=== PATIENT | male | born 1960 | race Caucasian/White ===

== ENCOUNTER → 2023-07-14 14:36 | Outpatient (BNVA) | payer OTHER, SELFPAY | PROVIDERS: PCP Family Medicine; Referring Provider Family Medicine; Visit Provider Orthopaedic Surgery | DX: M43.17 Spondylolisthesis, lumbosacral region (principal); M43.16 Spondylolisthesis, lumbar region; M41.50 Other secondary scoliosis, site unspecified; M48.062 Spinal stenosis, lumbar region with neurogenic claudication | CPT/HCPCS: 72110; 99204 ==

== ENCOUNTER 2023-08-12 14:39 | Outpatient (CLI) | payer OTHER, SELFPAY ==
--- NOTE | 2023-08-12 15:00 | MR_ITS ---
WS: [id number] MRI LUMBAR SPINE NONCONTRAST TECHNIQUE: Sagittal T1, T2 and STIR imaging. Axial T1 and T2 imaging. CLINICAL INFORMATION: Lumbar pain COMPARISON: None. FINDINGS: Mild lumbar curve. No acute compression. Chronic spondylolysis L5-S1 with anterolisthesis measuring 1 0 mm. Advanced disc space narrowing at this level. Slight retrolisthesis L2 on L3 L3 on L4 and L4 on L5. L1-L2: Normal. L2-L3: Mild annular bulging. Mild narrowing of the subarticular recess bilaterally. Mild facet arthro yolanda. Foramen are patent. L3-L4: Slight retrolisthesis. Mild disc bulging with mild central canal stenosis. Impingement irwin ing LEFT L4 nerve root. Moderate facet arthropathy. LEFT foraminal protrusion with moderate LEFT fora deisi narrowing. RIGHT foramen is patent. L4-L5: Slight retrolisthesis with mild disc bulging and advanced facet arthropathy. This results in s evere central canal stenosis with redundancy of the cauda equina nerve rootlets. Moderate bilateral f oraminal narrowing. L5-S1: Chronic spondylolysis and anterolisthesis. Severe bilateral foraminal narrowing impinges the e xiting L5 nerve roots bilaterally. Foramen is patent. Moderate facet arthropathy. Visualized pelvic bony structures: Normal. Paravertebral soft tissues: Normal. IMPRESSION: 1. Chronic spondylolysis L5-S1 with anterolisthesis measuring 10 mm. 2. Moderate to severe central canal stenosis L4-5 with redundancy of the cauda equina nerve rootlets . 3. Moderate bilateral L4-5 and severe bilateral L5-S1 foraminal narrowing. 4. Mild central canal stenosis L3-4 with impingement LEFT subarticular recess.
== END 2023-08-12 14:40 | disposition home or self-care (01) ==
LOC: RAD 14:39
PROVIDERS: PCP Family Medicine; Visit Provider Orthopaedic Surgery
DX: M47.817 Spondylosis without myelopathy or radiculopathy, lumbosacral region (principal); M48.07 Spinal stenosis, lumbosacral region; M54.9 Dorsalgia, unspecified
CPT/HCPCS: 72148

== ENCOUNTER 2023-10-12 12:07 | Inpatient (IN) | payer OTHER, SELFPAY ==
[2023-10-12] VITALS (61 sets, daily range): BP systolic 110–186; BP diastolic 72–106; PULSE 58–112; RESP 15–22; TEMP 36.3–36.7; O2SAT 96–100; BMI 29.2; BMI 22.2
--- NOTE | 2023-10-12 12:12 | XR_ITS ---
WS: [id number] Exam: XR chest 1V portable [id number] Date/Time of Exam: 10/12/2023 12:12 PM Reason For Exam: dyspnea/cough Comparison 02/01/2018. Findings: The lungs are clear and fully expanded. Costophrenic angles are sharp. No infiltrates. Bronchovascula r relief appears normal. Cardiac silhouette is unremarkable. Bony elements are intact. IMPRESSION: Unremarkable chest radiograph.
--- NOTE | 2023-10-12 12:12 | CTR_ITS ---
PROCEDURE INFORMATION: Exam: CT Head Without Contrast Exam date and time: 10/12/2023 3:06 PM Age: 62 years old Clinical indication: Altered mental status/memory loss; Confusion or disorientation; Additional info: Ams/new onset seizure TECHNIQUE: Imaging protocol: Computed tomography of the head without contrast. Radiation optimization: All CT scans at this facility use at least one of these dose optimization techniques: automated exposure control; mA and/or kV adjustment per patient size (includes targeted exams where dose is matched to clinical indication); or iterative reconstruction. REPORTING DATA: Count of CT and Cardiac NM exams in prior 12 months: This patient has received 0 known CTs and 0 known cardiac nuclear medicine studies in the 12 months prior to the current study. COMPARISON: MR head wo/w con [id number] 03/03/2018 12:15 PM RADIATION DOSE METRICS: Total DLP (mGy-cm): 927.44 FINDINGS: Brain: Normal. No hemorrhage. Unremarkable white matter. No mass effect. Cerebral ventricles: No ventriculomegaly. Paranasal sinuses: Mucosal thickening in the maxillary, ethmoid, and frontal sinuses. Mastoid air cells: Visualized mastoid air cells are well aerated. Bones/joints: Unremarkable. No acute fracture. Soft tissues: Unremarkable. CT/CT head wo con* [id number] IMPRESSION: No acute intracranial abnormality.
--- NOTE | 2023-10-12 12:12 | ECG_ITS ---
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 Measurements Intervals [place] Rate: 91 P: 65 WI: 184 QRS: 63 QRSD: 112 T: 64 QT: 352 QTc: 433 Interpretive Statements SINUS RHYTHM WITH OCCASIONAL VENTRICULAR PREMATURE COMPLEXES MODERATE INTRAVENTRICULAR CONDUCTION DELAY [110+ ms QRS DURATION] Compared to ECG 02/01/2018 20:39:20 Ventricular premature complex(es) now present Intraventricular conduction delay now present Electronically Signed On 10-12-2023 21:47:55 ELECTRIC BLANKET WIRER by Femi Villar M.D. [id number]
[2023-10-12 12:18] LABS: ABG PCO2 42.4 mmHg (35-45); ABG PH Result 7.43 (7.35-7.45); Alveolar-Arterial Oxygen Gradi 4.9 mmHg (5-10); Arterial Blood Gas Hematocrit 46.4 % (42-52); Base Excess ABG 3.1 mmol/L (-2.0-2.0); Blood Gas Allen Test Pos; Blood Gas Operator Identificat MONRO; Blood Gas Sample Site Radial, left; Blood Gas Sample Type Arterial; Carboxyhemoglobin 4.2 %THgb (0.4-20.1); HCO3 ABG 27.9 mmol/L (22-26); HGB O2 Sat 94.9 % (95-100); Ionized Calcium Level - ABG 1.2 mmol/L (1.1-1.4); Methemoglobin 0.4 % (0.4-1.5); Oxygen Device NC; Oxygen Saturation ABG 99.5; PO2 FiO2 Ratio Arterial Blood 0; Potassium Level - ABG 4.1 mmol/L (3.5-5.0); Total Hemoglobin 15.1 g/dL (14-18)
--- NOTE | 2023-10-12 12:30 | ED_ITS ---
HPI - Seizure 2 General: Chief Complaint: Seizure Stated Complaint: SEIZURES Time Seen by Provider: 10/12/23 12:08 Source: patient and EMS Mode of arrival: EMS History of Present Illness: HPI Narrative: 62-year-old male presents to the ER via EMS with report of status epilepticus. Patient has a history of seizures per the significant other that attends the ER with him he has failed all of the medications and controls them with marijuana now. She did later tell that she had given him edible marijuana product just prior to EMS arriving. He began having a seizure today seizure which she described as nearly an hour and EMS was called on arrival EMS gave the patient 5 of Versed the seizures seem to stop to then became combative they gave mother 2 and half Versed 50 of ketamine. On arrival here he is extremely sedate and poorly responsive initially shortly after arrival becomes awake and becomes combative extremely combative to the point he had to be restrained later in the visit MD complaint: seizure Witnessed: Yes - by Bystander Trauma: No Seizure History: Yes Treatments prior to arrival: benzodiazepines and restraints Review of Systems 2 General: Reports: ROS unobtainable due to medical condition and ROS unobtainable due to mental status [facility] ED 2 PFS: Medical History (Updated 10/13/23 @ 06:01 by Gianni Salas DO) Intractable epilepsy Status epilepticus Lumbar stenosis with neurogenic claudication Physical Exam 2 HENMT: COMMON NORMALS: normocephalic and atraumatic HEAD & SCALP: n ormocephalic and atraumatic Resp: COMMON NORMALS: normal respiratory effort, No retractions, No use of accessory muscles and clear to auscultation bilaterally AUSCULTATION: clear to auscultation bilaterally Cardio: COMMON NORMALS: regular rate, regular rhythm and No murmurs present (Cardio) RATE: regular rate RHYTHM: regular rhythm GI: COMMON NORMALS: Soft to palpation and No hepatosplenomegaly present A USCULTATION: Yes normoactive bowel sounds PALPATION: Yes Soft to palpation, No Tenderness to palpation present (GI), No Guarding due to palpation present (GI) and Yes No hepatosplenomegaly present Extremity: COMMON NORMALS: normal to inspection, capillary refill normal, no clubbing, cyanosis or edema, no calf tenderness and no pedal edema Skin: COMMON NORMALS: no rashes or lesions noted GENERAL SKIN EXAM: no rashes or lesions noted Procedures Intubation Time out performed: Yes sedative: Etomidate Mg Given: 30 paralytic: Succinylcholine Mg Given: 120 Laryngoscope: Vandana ET Tube Size: 8 ET Tube Uncuffed: No Tube Secured Depth (cm): 24 Tube Secured Location: teeth Tube Placement Confirmation: visualized tube passing through cords, equal breath sounds bilaterally, no breath sounds over epigastrium and confirmation by capnometry Patient Tolerated Procedure: well Intubation Complications: none Course 2 Vital Signs: Vital signs: Vital Signs Temperature 98.1 F 10/12/23 20:10 Pulse Rate 93 10/13/23 04:20 Respiratory Rate 20 H 10/13/23 04:20 Blood Pressure 117/72 10/13/23 04:20 Pulse Oximetry 100 10/13/23 04:20 Oxygen Delivery Me thod Mechanical Ventil ation 10/13/23 04:20 Oxygen Flow Rate 2 10/12/23 12:08 Fraction of Inspir ed Oxygen 35 10/13/23 04:20 MDM - Seizure MDM Narrative Medical decision making narrative: Initially patient is obtunded from medications given by EMS when he arrives however shortly after he began to wake became extremely combative was a danger to himself and at times is swinging out against staff. Is impossible to redirect. He was restrained given him several doses of Versed which had relatively minimal effects. Neurology was consulted and ultimately after discussion with neurology and hospitalist we decided to intubate the patient for his own safety and to prevent manage seizures since patient was repeatedly pulling out his IV lines and we cannot reliably give him antiseizure medications. He did have a couple of other brief episodes that appeared to be seizure-like. Urine tox screen was positive for benzodiazepines and marijuana otherwise negative. Patient will be admitted to the ICU with consult to Dr. Stapleton is on-call for neurology. I reviewed the case with hospitalist orders written Lab Data Attestation: I reviewed the patient's lab results. 10/12/23 12:26 10/12/23 12:26 Labs: Radiology Impressions Head CT 10/12/23 12:12 IMPRESSION: No acute intracranial abnormality. Chest X-Ray 10/12/23 18:01 IMPRESSION: 1. The ETT is positioned 5.9 cm above the rafaela. 2. No focal consolidation. Laboratory Results WBC 15.59 10^3/uL (3.29-11.43) H 10/12/23 12: RBC 5.09 10^6/uL (3.85-5.65) 10/12/23 12: Hgb 15.70 g/dL (11.27-16.99) 10/12/23 12: Hct 48.0 % (37-53) 10/12/23 12: MCV 94.3 fl (82-101) 10/12/23 12: MCH 30.8 pg (27-33) 10/12/23 12: MCHC 32.7 g/dL (30-55) 10/12/23 12: RDW 13.0 % (12.1-15.1) 10/12/23 12: Plt Count 233 10^3/cmm (157-399) 10/12/23 12: MPV 8.9 fL (7.4-10.4) 10/12/23 12: Neut % (Auto) 88.2 % 10/12/23 12: Lymph % (Auto) 6.5 % 10/12/23 12: Cotton % (Auto) 4.4 % 10/12/23 12: Eos % (Auto) 0.1 % 10/12/23 12: Baso % (Auto) 0.4 % 10/12/23 12: Neut # (Auto) 13.73 10^3/uL (1.8-7.7) H 10/12/23 12: Lymph # (Auto) 1.0 10^3/uL (0.8-4.8) 10/12/23 12: Cotton # (Auto) 0.7 10^3/uL (0.2-0.9) 10/12/23 12: Eos # (Auto) 0.0 10^3/uL (0.0-0.8) 10/12/23 12: Baso # (Auto) 0.1 10^3/uL (0.0-0.1) 10/12/23 12: Nucleated RBC % (auto) 0 % 10/12/23 12: Nucleated RBCs # 0.0 /100WBC 10/12/23 12:26 Specimen Type Arterial 10/12/23 12:05 Sample Site Radial, left 10/12/23 12:05 ABG pH 7.43 (7.35-7.45) 10/12/23 12:05 ABG pCO2 42.4 mmHg (35-45) 10/12/23 12:05 ABG pO2 141.0 mmHg (80.0-100.0) H 10/12/23 12:05 ABG PO2/FiO2 Ratio 0 10/12/23 12:05 ABG HCO3 27.9 mmol/L (22-26) H 10/12/23 12:05 ABG O2 Saturation 99.5 10/12/23 12:05 ABG Base Excess 3.1 mmol/L (-2.0-2.0) H 10/12/23 12:05 Jnoy Test Pos 10/12/23 12:05 A-a O2 Gradient 4.9 mmHg (5-10) L 10/12/23 12:05 Hematocrit 46.4 % (42-52) 10/12/23 12:05 Hgb O2 Saturation 94.9 % (95-100) L 10/12/23 12:05 Carboxyhemoglobin 4.2 %THgb (0.4-20.1) 10/12/23 12:05 Methemoglobin 0.4 % (0.4-1.5) 10/12/23 12:05 Total Hemoglobin 15.1 g/dL (14-18) 10/12/23 12:05 Sodium 140.0 mmol/L (131-143) 10/12/23 12:05 Potassium 4.1 mmol/L (3.5-5.0) 10/12/23 12:05 Glucose 107.0 mg/dL (70-115) 10/12/23 12:05 Ionized Calcium 1.2 mmol/L (1.1-1.4) 10/12/23 12:05 O2 Delivery Device Nc 10/12/23 12:05 O2 Liters/Min 3.0 % 10/12/23 12:05 FiO2 32.0 % 10/12/23 12:05 Cleaning Technician ID Monro 10/12/23 12:05 Sodium 141 mmol/L (136-145) 10/12/23 12:26 Potassium 4.7 mmol/L (3.5-5.1) 10/12/23 12:26 Chloride 102 mmol/L (98-107) 10/12/23 12:26 Carbon Dioxide 28 mmol/L (22-29) 10/12/23 12: Anion Gap 15.7 (5-19) 10/12/23 12:26 BUN 8 mg/dL (8-23) 10/12/23 12:26 Creatinine 1.2 mg/dL (0.7-1.2) 10/12/23 12:26 GFR Calculation 61.6 mL/min (90-130) L 10/12/23 12:26 Glucose 110 mg/dL (65-115) 10/12/23 12:26 Calculated Osmolality 291 mOsm/kg (285-295) 10/12/23 12:26 Lactic Acid 1.3 mmol/L (0.5-2.2) 10/12/23 12: Calcium 9.5 mg/dL (8.5-10.5) 10/12/23 12: Magnesium 2.2 mg/dL (1.7-2.3) 10/12/23 12: Total Bilirubin 0.7 mg/dL (0.15-1.2) 10/12/23 12: AST 21 U/L (0-40) 10/12/23 12: ALT 12 U/L (0-41) 10/12/23 12: Alkaline Phosphatase 89 U/L (40-130) 10/12/23 12:26 Troponin T Baseline 11 ng/L (0-15) 10/12/23 12: Troponin T 120 Minute 10.61 ng/L (0-15) 10/12/23 14:36 Delta Troponin T -0.39 ABS# (0-10) L 10/12/23 14:36 Total Protein 7.0 g/dL (6.6-8.7) 10/12/23 12: Albumin 4.6 g/dL (3.5-5.2) 10/12/23 12: Globulin 2.4 g/dL (1.3-4.6) 10/12/23 12:26 Urine Color Dark yellow (Yellow) 10/12/23 14:30 Urine Appearance Clear (CLEAR) 10/12/23 14:30 Urine pH 8 (5-7) H 10/12/23 14:30 Ur Specific [place] 1.015 (1.005-1.030) 10/12/23 14:30 Urine Protein Neg (Negative) 10/12/23 14:30 Urine Glucose (UA) Norm (Normal) 10/12/23 14:30 Urine Ketones 1+ (Negative) H 10/12/23 14:30 Urine Blood Neg (Negative) 10/12/23 14:30 Urine Nitrate Negative (Negative) 10/12/23 14:30 Urine Bilirubin Neg (Negative) 10/12/23 14:30 Prot Sulfosalicylic Acd Negative (Negative) 10/12/23 14:30 Urine Urobilinogen 1 mg/dL (Negative) H 10/12/23 14:30 Ur Leukocyte Esterase Negative (Negative) 10/12/23 14:30 Salicylates < 0.3 mg/dL (3-10) L 10/12/23 12:26 Urine Opiates Screen Negative ng/mL (Negative) 10/12/23 14:30 Acetaminophen < 5.0 ug/mL (10-30) L 10/12/23 12:26 Ur Barbiturates Screen Negative ng/mL (Negative) 10/12/23 14:30 Ur Phencyclidine Scrn Negative ng/mL (Negative) 10/12/23 14:30 Ur Amphetamines Screen Negative ng/mL (Negative) 10/12/23 14:30 U Benzodiazepines Scrn Positive ng/mL (Negative) H 10/12/23 14:30 Urine Cocaine Screen Negative ng/mL (Negative) 10/12/23 14:30 U Marijuana (THC) Screen Positive ng/mL (Negative) H 10/12/23 14:30 Ethyl Alcohol < 10 mg/dL (0-10) 10/12/23 12:26 All radiology interpretation(s) finalized by discharge Critical Care Time 2 Critical Care Time: Critical Care Time: Yes Total Critical Care Time: 45 Attestation: The high probability of a clinically significant, sudden or life threatening deterioration of the patient's neurologic system(s) required my full and direct attention, intervention and personal management. The critical care time is as shown. This time is in addition to time spent performing any reported procedures but includes the following: [x] Data and vital sign review and interpretation [x] Patient assessment, examination and intervention [x] Documentation [x] Medication orders and management Discharge Plan Discharge Patient Disposition: Admitted As Inpatient Admit Provider: Nell Lawrence Clinical Impression: Intractable epilepsy, Lumbar stenosis with neurogenic claudication Condition: Stable Coding Level of Care Code ED Commercial Leasing Agent for Madie Deshpande
[2023-10-12 12:34] LABS: Basophils # 0.1 10^3/uL (0.0-0.1); Basophils % 0.4 %; Eosinophils % 0.1 %; Lymphocytes % 6.5 %; Mean Corpuscular HGB Conc 32.7 g/dL (30-55); Mean Corpuscular Hemoglobin 30.8 pg (27-33); Mean Corpuscular Volume 94.3 fl (82-101); Mean Platelet Volume 8.9 fL (7.4-10.4); Monocytes # 0.7 10^3/uL (0.2-0.9); Monocytes % 4.4 %; Neutrophils # 13.73 10^3/uL (1.8-7.7); Neutrophils % 88.2 %; Nucleated Red Blood Cells % 0 %; Platelet Count 233 10^3/cmm (157-399); Red Blood Count 5.09 10^6/uL (3.85-5.65); White Blood Count 15.59 10^3/uL (3.29-11.43)
[2023-10-12 12:56] LABS: Alanine Aminotransferase 12 U/L (0-41); Albumin Level 4.6 g/dL (3.5-5.2); Alkaline Phosphatase 89 U/L (40-130); Blood Urea Nitrogen 8 mg/dL (8-23); Calcium 9.5 mg/dL (8.5-10.5); Carbon Dioxide 28 mmol/L (22-29); Chloride 102 mmol/L (98-107); Globulin 2.4 g/dL (1.3-4.6); Glomerular Filtration Rate 61.6 mL/min (90-130); Glucose 110 mg/dL (65-115); Magnesium 2.2 mg/dL (1.7-2.3); Osmolality Calculated 291 mOsm/kg (285-295); Sodium 141 mmol/L (136-145); Total Bilirubin 0.7 mg/dL (0.15-1.2)
[2023-10-12 12:58] LABS: Lactic Sepsis W/Reflex 1.3 mmol/L (0.5-2.2)
[2023-10-12 12:59] LABS: Anion Gap 15.7 (5-19); Aspartate Amino Transferase 21 U/L (0-40); Potassium 4.7 mmol/L (3.5-5.1)
[2023-10-12 13:00] LABS: Troponin(5th) Baseline 11 ng/L (0-15)
--- NOTE | 2023-10-12 14:12 | ECG_ITS ---
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 Measurements Intervals [place] Rate: 99 P: 61 ND: 176 QRS: 55 QRSD: 122 T: 61 QT: 344 QTc: 443 Interpretive Statements SINUS RHYTHM POSSIBLE LEFT ATRIAL ENLARGEMENT [-0.1mV P-WAVE IN V1/V2] MODERATE INTRAVENTRICULAR CONDUCTION DELAY [110+ ms QRS DURATION] Compared to ECG 10/12/2023 12:39:04 Ventricular premature complex(es) no longer present Electronically Signed On 10-12-2023 21:52:53 TELEPHONE INSTALLER by Femi Villar M.D. [id number]
--- NOTE | 2023-10-12 14:14 | PC.PHAR ---
PT COMBATIVE - CODE 10 CALLED- UNABLE TO OBTAIN
[2023-10-12] MEDS: midazolam 1 mg/mL INJ 2 mL 4 MG IVP (14:17)
[2023-10-12 14:40] LABS: Add Urine Microscopic? NO; Charge for UA Resulting for Rev
[2023-10-12 14:43] LABS: Acetaminophen < 5.0 ug/mL (10-30); Alcohol Level < 10 mg/dL (0-10); Salicylate < 0.3 mg/dL (3-10)
[2023-10-12] MEDS: midazolam 1 mg/mL INJ 2 mL 2 MG IVP ×2 (14:46→16:19)
[2023-10-12 14:51] LABS: Bilirubin Urine Neg (Negative); Blood Urine Neg (Negative); Glucose Urine UA Norm (Normal); Ketones Urine 1+ (Negative); Leukocyte Esterase Urine Negative (Negative); Nitrate Urine Negative (Negative); Protein Urine Neg (Negative); Specific Gravity, Urine 1.015 (1.005-1.030); Sulfosalicylic Acid Urine Negative (Negative); Urine Appearance Clear (CLEAR); Urine Color Dark Yellow (Yellow); Urobilinogen Urine 1 mg/dL (Negative); pH Urine 8 (5-7)
[2023-10-12 14:54] LABS: Amphetamines Screen Urine Negative (Negative); Barbiturates Screen Urine Negative (Negative); Benzodiazepines Screen Urine Positive (Negative); Cocaine Screen Urine Negative (Negative); Opiate Screen Urine Negative (Negative); PCP Screen Urine Negative (Negative); THC Screen Urine Positive (Negative)
[2023-10-12 14:58] LABS: Troponin 5 2HR 10.61 ng/L (0-15)
[2023-10-12 14:59] LABS: Troponin 5 2HR Delta -0.39 ABS# (0-10)
--- NOTE | 2023-10-12 16:58 | PM.CONSULT ---
Providers/Reason For Consult Consulting Physician/Specialty*: Chapo Stapleton MD neurology and epilepsy Reason for Consult*: Status epilepticus in patient with history of intractable epilepsy treated with marijuana gummy bears Attending Physician: Nell Lawrence MD Primary Care Provider: Bruna Mitchell MD History of Present Illness History of Present Illness González Naranjo is a 62 year old male with a history of childhood epilepsy. According to the family, the patient's seizures are described as brief staring spells with altered awareness associated with oral automatisms and trembling of his lower jaw for 1 to 2 minutes followed by postevent confusion for several minutes up to an hour. According to the family the patient experiences approximately 1 seizure per week of this type. The family stated that the patient's seizure associated with prolonged altered awareness was approximate 2 years ago and the patient last grand mal seizure was approximately 5 years ago. According to the family who was at the patient's bedside in the emergency department room #14, the patient was at home and when the woke up the patient was experiencing a seizure described as staring and unable to communicate. According to the patient's the seizure was prolonged and associated with generalized body shaking and continued confusion and agitation. The patient's stated that she gave the patient a gummy bear but he threw it up approximately 1 hour later. The patient's stated she contacted EMS because the patient experienced a generalized seizure. The patient was reported to be given Versed 7.5 mg, Phenergan 25 mg and ketamine 50 mg en route to the [facility] emergency room. In the emergency room the patient was reported to be severely agitated and was given 8 mg of Versed, 4 mg of Ativan and 1 g of Keppra. According to the family in the past when the patient was given Keppra he became very agitated. According to the patient's , the patient has been evaluated by more than 1 neurologist and was tried on Neurontin, Lamictal and Keppra. According to the patient's the patient discontinued the medication secondary to side effects and agitation on the Keppra. The patient states the patient uses Klonopin as needed at a low dose which he has not experienced any adverse effects from. According to the patient's the patient has never been tried on Depakote, Dilantin, phenobarbital, or Topamax or Tegretol. The stated that the patient was diagnosed with questionable absence seizure's in childhood but she is not totally sure of the patient's actual diagnostic seizure type. Noncontrast head CT scan was obtained on 10/12/2023 and reported to be negative for any acute findings. Metabolic lab was positive for benzodiazepines and marijuana otherwise negative. CBC and comprehensive metabolic panel revealed elevated white count of 15.59. Other labs was essentially unrevealing. Drug allergies: Keppra which resulted in agitation Past medical history: Intractable epilepsy since childhood Lumbar spinal stenosis addressed by Dr. Yeung Current home medications: Gummy bears for epilepsy Klonopin low-dose as needed seizures Past medications: Neurontin, Klonopin, Lamictal, Keppra Habits: Patient smokes 1/2 pack/day for the past 40 years. According to the family the patient does not drink alcohol or use any other illicit drugs Family history: Negative for epilepsy Review of Systems General: Reports: 10 or more systems reviewed and unremarkable except in HPI and below Medications/Allergies Home Medications Medication Instructions Recorded Confirmed Last Taken Type Unable to Assess 10/12/23 10/12/23 Unknown History Allergies Allergy/AdvReac Type Severity Reaction Status Date / Time No Known Allergies Allergy Verified 10/12/23 12:17 Vitals/I&O/Wt Last Vital Signs Temp 97.4 F L 10/12/23 12:08 Pulse 89 10/12/23 16:00 Resp 16 10/12/23 16:00 BP 142/88 10/12/23 16:00 Pulse Ox 96 10/12/23 16:00 O2 Del Method Room Air 10/12/23 14:19 O2 Flow Rate 2 10/12/23 12:08 10/12/23 10/12/23 10/12/23 06:59 14:59 22:59 Intake Total 110 / 110 Balance 110 / 110 Weight last 48 hrs Weight 210 lb Physical Exam Narrative: The patient is currently awake and agitated. He is in emergency department room #14 in 4 point leather restraints. Patient's family is at his bedside. The patient does communicate with the family and is periodically calm briefly and then he resumes thrashing about trying to untangle himself from the 4 point leather restraints. Patient stated that he wants to get all for the gurney. Head atraumatic. Neck supple. Cranial nerves II through XII grossly intact pupils round reactive to light accommodation. Extraocular movements grossly intact. Motor testing 5/5 bilaterally. Deep tendon reflexes revealed plantar responses bilaterally. Full deep tendon reflex assessment not possible since patient is not cooperative. Sensory examination intact to gross modalities. Throat clear. Lungs clear. Heart regular rhythm and rate extremities were negative for clubbing or cyanosis or edema Data 10/12/23 12:26 10/12/23 12: Micro: Microbiology 10/12/23 12: Blood Culture - Preliminary Blood SPECIMEN COLLECTED 10/12/23 12: Blood Culture - Preliminary Blood SPECIMEN COLLECTED A&P Assessment and plan (1) Status epilepticus: Impression: 1. Status epilepticus followed by postevent agitation requiring high doses of benzodiazepines and 4 point leather restraints 2. Intractable epilepsy since childhood 3. Reports of adverse reaction to Keppra resulting in severe agitation Plan: 1. Trial of IV Depacon 1 g load over 1 hour followed by 250 mg IV 3 times daily 2. Trough Depakote level in a.m. 3. Adjust IV Depacon as needed/tolerated 4. Agree with Ativan IV drip if needed for seizures and agitation 5. Monitor the patient's respirations and vital signs closely in the intensive care unit 6. Recommend IV fluids normal saline at 75 cc/h for hydration 7. Will consider phenobarbital, Vimpat, Celontin if needed for intractable epilepsy 8. Will obtain surface EEG recording on an outpatient basis or during this hospitalization if needed 9. Agree with restraints for now to prevent patient from injuring himself or others 10. Seizure and fall precautions during this hospitalization and per [place] state law (2) Intractable epilepsy: Consult Attestations Medical Necessity Statement: The patient was evaluated by neurology for status epilepticus and postevent seizure agitation Coding Level of Care Code 25576 Diagnoses Status epilepticus G40.901 Intractable epilepsy G40.919
[2023-10-12] MEDS: valproic acid inj 1,000 MG in sodium chloride 0.9% 50 ML 55 MG IV (17:41)
[2023-10-12] MEDS: etomidate 2 mg/mL INJ SDV 10 mL 30 MG IVP (17:52)
[2023-10-12] MEDS: succinylcholine 20 mg/mL SDV 10mL 120 MG IVP (17:53)
[2023-10-12] MEDS: propofol 10 mg/mL SDV 20 mL 100 MG IVP ×2 (17:59→18:21)
--- NOTE | 2023-10-12 18:00 | P.HP_ITS ---
Providers/Chief Complaint 2 Admitting Physician: Nell Lawrence MD Primary Care Provider: Bruna Mitchell MD Chief Complaint: SEIZURES History of Present Illness González Naranjo is a 62 year old male who is brought to the emergency room today via EMS with reports of status epilepticus. History is exclusively obtained from his who is at bedside. Per his patient has a history of refractory seizures that have continued to be uncontrolled in spite of multiple lines of medications. She does not know the medications exactly but indicates that she will bring these in eventually tomorrow. Apparently currently seizures are being controlled with marijuana Gummies at home. Today patient started experiencing a seizure with generalized tonic- clonic movements which persisted for about an hour. EMS was called and. He received Ativan, ketamine and Phenergan along today. At the time he reached the emergency room he was extremely combative. His GCS was low initially but thereafter he became combative. There was concern for airway protection. He was initially placed on an Ativan drip with plans to continue the same and closely monitor his respiratory status, however given his increasing agitation he was eventually intubated. He is currently on fentanyl propofol and Versed infusion. There is no current recent history of fever chills nausea vomiting diarrhea abdominal pain. No reported IV drug use. He is a current daily smoker. No past history of known COPD. Review of Systems 2 General: Reports: ROS unobtainable due to medical condition Medications/Allergies Home Medications Medication Instructions Recorded Confirmed Last Taken Type Unable to Assess 10/12/23 10/12/23 Unknown History Allergies Allergy/AdvReac Type Severity Reaction Status Date / Time No Known Allergies Allergy Verified 10/12/23 12:17 PFSH Acute 2 PFSH: Medical History Intractable epilepsy Status epilepticus Lumbar stenosis with neurogenic claudication Vitals/I&O/Wt Last Vital Signs Temp 99.1 F 10/13/23 12:18 Pulse 76 10/13/23 06:15 Resp 15 10/13/23 11:45 BP 101/67 10/13/23 06:15 Pulse Ox 99 10/13/23 11:45 O2 Del Method Mechanical Ventilation 10/13/23 06:15 O2 Flow Rate 2 10/12/23 12:08 FiO2 30 10/13/23 11:45 12/10/13/23 10/13/23 22:59 06:59 14:59 Intake Total 101.433 / 211.433 62.968 / 857.502 0342.343 / 1161.343 Output Total 200 / 200 125 / 325 Balance -98.567 / 11.433 -62.032 / -50.599 1161.343 / 1161.343 Weight last 48 hrs Weight 73.028 kg Weight 73.028 kg Weight 72.348 kg Weight 95.254 kg Physical Exam 2 Narrative: General: unable to assess HEENT: PERRLA, pupils bilaterally equal and reactive, pallors not present Chest: Normal vesicular breath sounds, no added sounds, equal good air entry bilaterally CVS: S1-S2 regular, no murmurs, no tachycardia, no gallops, no rubs Abdomen: Soft, nontender, no organomegaly, bowel sounds present Neuro: unable to assess Urinary Catheter Management: Thorpe: Cath Placed During This Visit: yes Reason for Continuing Indwelling Catheter: Accurate Measurement of Urinary Output in Critically Ill Patients Urinary Catheter Date of Insertion: 10/12/23 Urinary Catheter Time of Insertion: 18:27 Data 10/13/23 06:28 10/13/23 06:28 Micro: Microbiology 10/12/23 12:26 Blood Culture - Preliminary Blood NEGATIVE TO DATE 10/12/23 12:23 Blood Culture - Preliminary Blood NEGATIVE TO DATE A&P Assessment and plan (1) Status epilepticus: (2) Behavior concern: Plan Patient is presenting emergency room via EMS today with reports of uncontrolled seizures. Per history he has a history of seizures with breakthrough on multiple medications. Currently he has been started on sodium valproate per neurology recommendations which we will continue. Showed extreme agitation post a seizure which may be related to receiving ketamine multiple doses of benzodiazepines versus postictal state. neuro consult appreciated Currently intubated for airway protection. Continue Versed, fentanyl, propofol Check ABG with a.m. labs. Will attempt to wean down sedation as tolerated when appropriate. DVT prophylaxis Lovenox Full code Further orders dependent on clinical progress Attestations 2 Medical Necessity Statement*: Greater than 2 midnight admission is anticipated at this point in time for control of status epilepticus. Coding Level of Care Code Acute Code for Chg Fwd Diagnoses Status epilepticus G40.901 Behavior concern R46.89
--- NOTE | 2023-10-12 18:01 | XRR_ITS ---
PROCEDURE INFORMATION: Exam: XR Chest Exam date and time: 10/12/2023 6:01 PM Age: 62 years old Clinical indication: Device placement; Additional info: Intubation TECHNIQUE: Imaging protocol: Radiologic exam of the chest. Views: 1 view. COMPARISON: CR XR chest 1V portable [id number] 10/12/2023 12:41 PM FINDINGS: Tubes, catheters and devices: The ETT is positioned 5.9 cm above the rafaela. Lungs: No focal consolidation. Pleural spaces: Unremarkable. No pleural effusion. No pneumothorax. Heart/Mediastinum: Unremarkable. No cardiomegaly. Bones/joints: Unremarkable. XR/XR chest 1V portable [id number] IMPRESSION: 1. The ETT is positioned 5.9 cm above the rafaela. 2. No focal consolidation.
[2023-10-12] MEDS: midazolam hcl 100 MG/100 ML BAG IV (18:04)
[2023-10-12] MEDS: fentaNYL 1,000 MCG/100 ML BAG 2.5 MCG IV (18:05)
--- NOTE | 2023-10-12 18:10 | PC.NURSE ---
Dr Salas at bedside. VO given to titrate Versed to 4mg and Fentanyl to 50mcg at this time
--- NOTE | 2023-10-12 18:20 | ECG_ITS ---
[facility] Test Date: 2023-10-12 Pat Name: González Naranjo Department: Room: ICU03 Gender: Male Clipping Marker: : 1960 Requested By: Gianni Brown Order Number: [id number] Ana Laura MD: Femi Villar M.D. Measurements Intervals [place] Rate: 116 P: 73 TN: 166 QRS: 1 QRSD: 100 T: 75 QT: 322 QTc: 448 Interpretive Statements SINUS TACHYCARDIA POSSIBLE LEFT ATRIAL ENLARGEMENT [-0.1mV P-WAVE IN V1/V2] PROBABLE INFERIOR MYOCARDIAL INFARCTION , PROBABLY OLD [35 ms Q WAVE IN II/aVF] Compared to ECG 10/12/2023 15:01:20 Myocardial infarct finding now present Sinus rhythm no longer present Intraventricular conduction delay no longer present Electronically Signed On 10-12-2023 21:54:53 [facility] [employer] RN by Femi Villar M.D. [id number]
[2023-10-12] MEDS: propofol 1,000 MG/100 ML INJ 2.86 MG IV (18:57)
[2023-10-12] MEDS: sodium chloride 0.9% 1,000 ML 100 ML IV (21:18)
[2023-10-12] MEDS: enoxaparin 40 mg/0.4 mL Syringe SUBCUT (21:19)
[2023-10-13] VITALS (156 sets, daily range): BP systolic 89–135; BP diastolic 55–90; PULSE 55–99; RESP 15–20; TEMP 36.8–37.3; O2SAT 95–100
[2023-10-13] MEDS: valproic acid inj 250 MG in sodium chloride 0.9% 50 ML 55 MG IV ×4 (00:59→20:08)
[2023-10-13 03:20] LABS: ABG PCO2 46.9 mmHg (35-45); ABG PH Result 7.37 (7.35-7.45); Alveolar-Arterial Oxygen Gradi 19.6 mmHg (5-10); Arterial Blood Gas Hematocrit 43.3 % (42-52); Base Excess ABG 1.3 mmol/L (-2.0-2.0); Blood Gas Allen Test Pos; Blood Gas Sample Site Brachial, right; Blood Gas Sample Type Arterial; Carboxyhemoglobin 1.4 %THgb (0.4-20.1); HCO3 ABG 27.2 mmol/L (22-26); HGB O2 Sat 96.9 % (95-100); Ionized Calcium Level - ABG 1.2 mmol/L (1.1-1.4); Methemoglobin 1.1 % (0.4-1.5); Oxygen Device VENT; Oxygen Saturation ABG 99.3; PO2 FiO2 Ratio Arterial Blood 0; Potassium Level - ABG 3.9 mmol/L (3.5-5.0); Total Hemoglobin 14.1 g/dL (14-18)
--- NOTE | 2023-10-13 04:35 | PC.NURSE ---
Addendum entered by Shen Aviles RN 10/13/23 05:19: This nurse verified Fentanyl bag with [facility] for ICU-3. This nurse has filed an event report regarding this specific situation. Original Note: Patient started on another bag of fentanyl. This nurse is unable to scan barcode, Pharmacy aware and told us to write a note when we started fentanyl.
[2023-10-13 06:49] LABS: Basophils # 0.1 10^3/uL (0.0-0.1); Basophils % 0.4 %; Eosinophils # 0.2 10^3/uL (0.0-0.8); Eosinophils % 1.5 %; Hematocrit 42.6 % (37-53); Lymphocytes # 2.8 10^3/uL (0.8-4.8); Lymphocytes % 22.7 %; Mean Corpuscular HGB Conc 32.4 g/dL (30-55); Mean Corpuscular Hemoglobin 31.3 pg (27-33); Mean Corpuscular Volume 96.6 fl (82-101); Mean Platelet Volume 9.3 fL (7.4-10.4); Monocytes # 0.8 10^3/uL (0.2-0.9); Monocytes % 6.4 %; Neutrophils # 8.52 10^3/uL (1.8-7.7); Neutrophils % 68.5 %; Nucleated Red Blood Cells % 0 %; Platelet Count 184 10^3/cmm (157-399); Red Blood Count 4.41 10^6/uL (3.85-5.65); Red Cell Distribution Width 13.3 % (12.1-15.1); White Blood Count 12.44 10^3/uL (3.29-11.43)
[2023-10-13 06:58] LABS: Alanine Aminotransferase 10 U/L (0-41); Albumin Level 3.6 g/dL (3.5-5.2); Alkaline Phosphatase 74 U/L (40-130); Anion Gap 12.1 (5-19); Aspartate Amino Transferase 20 U/L (0-40); Blood Urea Nitrogen 13 mg/dL (8-23); Calcium 8.6 mg/dL (8.5-10.5); Carbon Dioxide 27 mmol/L (22-29); Chloride 105 mmol/L (98-107); Globulin 2.3 g/dL (1.3-4.6); Glomerular Filtration Rate 61.6 mL/min (90-130); Glucose 77 mg/dL (65-115); Osmolality Calculated 289 mOsm/kg (285-295); Potassium 4.1 mmol/L (3.5-5.1); Sodium 140 mmol/L (136-145); Total Bilirubin 0.8 mg/dL (0.15-1.2); Total Protein 5.9 g/dL (6.6-8.7)
[2023-10-13 06:59] LABS: Valproic Acid Level 40.3 ug/mL (50-100)
[2023-10-13] MEDS: propofol 1,000 MG/100 ML INJ 14.29 MG IV ×3 (07:41→22:42)
--- NOTE | 2023-10-13 09:19 | PC.NURSE ---
Unable to scan Fentanyl drip bags, Rx aware
[2023-10-13] MEDS: sodium chloride 0.9% 1,000 ML 100 ML IV (09:43)
--- NOTE | 2023-10-13 12:50 | P.PN_ITS ---
Subjective 2 Subjective: No acute interim events. Continues to be intubated and sedated. Valproate level low this morning. Tmax 99.1 Fahrenheit. Urine output low. However creatinine is currently well-maintained. Continue IV hydration. Change fluids Medications: Reviewed: Yes Vitals/I&O/Wt Last Vital Signs Temp 99.1 F 10/13/23 12:18 Pulse 76 10/13/23 06:15 Resp 15 10/13/23 11:45 BP 101/67 10/13/23 06:15 Pulse Ox 99 10/13/23 11:45 O2 Del Method Mechanical Ventilation 10/13/23 06:15 O2 Flow Rate 2 10/12/23 12:08 FiO2 30 10/13/23 11:45 10/12/23 10/13/23 10/13/23 22:59 06:59 14:59 Intake Total 101.433 / 211.433 62.968 / 528.233 7293.343 / 1161.343 Output Total 200 / 200 125 / 325 Balance -98.567 / 11.433 -62.032 / -50.599 1161.343 / 1161.343 Weight last 48 hrs Weight 73.028 kg Weight 73.028 kg Weight 72.348 kg Weight 95.254 kg Physical Exam 2 Narrative: General: unable to assess HEENT: PERRLA, pupils bilaterally equal and reactive, pallors not present Chest: Normal vesicular breath sounds, no added sounds, equal good air entry bilaterally CVS: S1-S2 regular, no murmurs, no tachycardia, no gallops, no rubs Abdomen: Soft, nontender, no organomegaly, bowel sounds present Neuro: unable to assess Urinary Catheter Management: Thorpe: Cath Placed During This Visit: yes Reason for Continuing Indwelling Catheter: Accurate Measurement of Urinary Output in Critically Ill Patients Urinary Catheter Date of Insertion: 10/12/23 Urinary Catheter Time of Insertion: 18:27 Data 10/13/23 06:28 10/13/23 06:28 Micro: Microbiology 10/12/23 12:26 Blood Culture - Preliminary Blood NEGATIVE TO DATE 10/12/23 12:23 Blood Culture - Preliminary Blood NEGATIVE TO DATE A&P Assessment and plan (1) Status epilepticus: (2) Behavior concern: Plan Patient is presenting emergency room via EMS on October 12, 2023 due to status epilepticus. Per history he has a history of seizures with breakthrough on multiple medications. Showed extreme agitation post a seizure which may be related to receiving ketamine multiple doses of benzodiazepines versus postictal state. neuro consult appreciated Valproic acid level low at 40.3 this morning, increased dose from 250 IV every 8 hours to 250 IV every 6 hours. Recheck level in the a.m. Currently intubated for airway protection. Continued sedation and ventilation for now. Attempt to wean off propofol today while maintaining Versed infusion. Plan for sedation vacation and weaning trial tomorrow. Check ABG with a.m. labs. DVT prophylaxis Lovenox Full code Further orders dependent on clinical progress Attestations 2 Medical Necessity Statement*: Continued admission for status epilepticus. Coding Level of Care Code Acute Code for Chg Fwd High MDM includes number and complexity of problems actively addressed during encounter, amount and/or complexity of data reviewed/ordered and described risk of complication, morbidity or mortality of management as documented Diagnoses Status epilepticus G40.901 Behavior concern R46.89
--- NOTE | 2023-10-13 13:03 | XR_ITS ---
WS: [id number] Exam: XR chest 1V portable [id number] Date/Time of Exam: 10/13/2023 1:03 PM Reason For Exam: intubated Comparison 10/12/2023. An endotracheal tube is in place ending about 5 cm above the rafaela in good position. The lungs are c lear and well ventilated. No pleural effusions. Normal cardiomediastinal silhouette. Bony structures are intact. IMPRESSION: 1. No acute process. 2. ET tube in satisfactory position.
--- NOTE | 2023-10-13 14:46 | P.PN_ITS ---
Subjective 2 Subjective: History of Present Illness González Naranjo is a 62 year old male with a history of childhood epilepsy. According to the family, the patient's seizures are described as brief staring spells with altered awareness associated with oral automatisms and trembling of his lower jaw for 1 to 2 minutes followed by postevent confusion for several minutes up to an hour. According to the family the patient experiences approximately 1 seizure per week of this type. The family stated that the patient's seizure associated with prolonged altered awareness was approximate 2 years ago and the patient last grand mal seizure was approximately 5 years ago. According to the family who was at the patient's bedside in the emergency department room #14, the patient was at home and when the woke up the patient was experiencing a seizure described as staring and unable to communicate. According to the patient's the seizure was prolonged and associated with generalized body shaking and continued confusion and agitation. The patient's stated that she gave the patient a gummy bear but he threw it up approximately 1 hour later. The patient's stated she contacted EMS because the patient experienced a generalized seizure. The patient was reported to be given Versed 7.5 mg, Phenergan 25 mg and ketamine 50 mg en route to the [facility] emergency room. In the emergency room the patient was reported to be severely agitated and was given 8 mg of Versed, 4 mg of Ativan and 1 g of Keppra. According to the family in the past when the patient was given Keppra he became very agitated. According to the patient's , the patient has been evaluated by more than 1 neurologist and was tried on Neurontin, Lamictal and Keppra. According to the patient's the patient discontinued the medication secondary to side effects and agitation on the Keppra. The patient states the patient uses Klonopin as needed at a low dose which he has not experienced any adverse effects from. According to the patient's the patient has never been tried on Depakote, Dilantin, phenobarbital, or Topamax or Tegretol. The stated that the patient was diagnosed with questionable absence seizure's in childhood but she is not totally sure of the patient's actual diagnostic seizure type. Noncontrast head CT scan was obtained on 10/12/2023 and reported to be negative for any acute findings. Metabolic lab was positive for benzodiazepines and marijuana otherwise negative. CBC and comprehensive metabolic panel revealed elevated white count of 15.59. Other labs was essentially unrevealing. Due to the patient continued agitation he was intubated and started on IV Depacon 1 g IV load followed by 250 mg IV 3 times a day. Trough Depakote level on 10/13/2023 was 40. IV Depacon was increased to 250 mg 4 times a day with repeat trough Depakote level on 10/14/2023. Patient remains on the ventilator on propofol. He has not experienced any further seizures. He is in no apparent distress. Vital signs stable. Drug allergies: Keppra which resulted in agitation Past medical history: Intractable epilepsy since childhood Lumbar spinal stenosis addressed by Dr. Yeung Current home medications: Gummy bears for epilepsy Klonopin low-dose as needed seizures Past medications: Neurontin, Klonopin, Lamictal, Keppra Habits: Patient smokes 1/2 pack/day for the past 40 years. According to the family the patient does not drink alcohol or use any other illicit drugs Family history: Negative for epilepsy Review of Systems General: Reports: 10 or mor e systems reviewed and unremarkable except in HPI and below Vitals/I&O/Wt Last Vital Signs Temp 99.1 F 10/13/23 12:18 Pulse 76 10/13/23 06:15 Resp 15 10/13/23 13:35 BP 101/67 10/13/23 06:15 Pulse Ox 97 10/13/23 13:35 O2 Del Method Mechanical Ventilation 10/13/23 06:15 O2 Flow Rate 2 10/12/23 12:08 FiO2 30 10/13/23 13:35 10/12/23 10/13/23 10/13/23 22:59 06:59 14:59 Intake Total 101.433 / 211.433 62.968 / 531.244 4773.275 / 1253.275 Output Total 200 / 200 125 / 325 Balance -98.567 / 11.433 -62.032 / -50.599 1253.275 / 1253.275 Weight last 48 hrs Weight 161 lb Weight 161 lb Weight 159 lb 8 oz Weight 210 lb Physical Exam 2 Narrative: Patient intubated on propofol for sedation Head atraumatic. Neck supple. Cranial nerves II through XII grossly intact pupils round reactive to light accommodation. Extraocular movements grossly intact. Motor testing 5/5 bilaterally. Deep tendon reflexes revealed plantar responses bilaterally. Sensory examination difficult to assess secondary to sedation. Throat clear. Lungs clear. Heart regular rhythm and rate extremities were negative for clubbing or cyanosis or edema Urinary Catheter Management: Thorpe: Cath Placed During This Visit: yes Reason for Continuing Indwelling Catheter: Accurate Measurement of Urinary Output in Critically Ill Patients Urinary Catheter Date of Insertion: 10/12/23 Urinary Catheter Time of Insertion: 18:27 Data 10/13/23 06:28 10/13/23 06:28 Micro: Microbiology 10/12/23 12:26 Blood Culture - Preliminary Blood NEGATIVE TO DATE 10/12/23 12:23 Blood Culture - Preliminary Blood NEGATIVE TO DATE A&P Assessment and plan (1) Status epilepticus: Impression: 1. Status epilepticus followed by postevent agitation requiring high doses of benzodiazepines and 4 point leather restraints 2. Intractable epilepsy since childhood 3. Reports of adverse reaction to Keppra resulting in severe agitation Plan: 1. Increase IV Depacon to 250 mg IV 4 times a day 2. Trough Depakote level in a.m. 3. Adjust IV Depacon as needed/tolerated 4. Agree with Ativan IV if needed for seizures and agitation 5. Monitor the patient's respirations and vital signs closely in the intensive care unit 6. Recommend IV fluids normal saline at 75 cc/h for hydration 7. Will consider phenobarbital, Vimpat, Celontin if needed for intractable epilepsy 8. Padded bed rails 9. Seizure/ fall precautions during his hospitalization and per state law (2) Intractable epilepsy: Attestations 2 Medical Necessity Statement*: Patient evaluated by neurology for status epilepticus and intractable epilepsy with seizures Coding Level of Care Code 66712 Diagnoses Status epilepticus G40.901 Intractable epilepsy G40.919
[2023-10-13] MEDS: fentaNYL 1,000 MCG/100 ML BAG 7.5 MCG IV (16:00)
--- NOTE | 2023-10-13 19:19 | PC.NURSE ---
Shift SUmmary: Uneventful shift. Patient rested in bed throughout the day. Sedation medication rates have not been reduced as Dr butcher wants to retain the antiepileptic effects of the medications until valproic acid levels are therapeutic (will be checked with 4am labs). Urine output has only been 50mL and urine is dark/concentrated, Dr butcher aware, monitoring Kidney functions with morning labs.
[2023-10-13] MEDS: enoxaparin 40 mg/0.4 mL Syringe SUBCUT (20:09)
[2023-10-14] VITALS (97 sets, daily range): BP systolic 88–183; BP diastolic 55–131; PULSE 56–145; RESP 15; TEMP 36.6–37; O2SAT 94–100
[2023-10-14] MEDS: valproic acid inj 250 MG in sodium chloride 0.9% 50 ML 55 MG IV ×4 (00:34→21:12)
[2023-10-14] MEDS: sodium chloride 0.9% 1,000 ML 100 ML IV (00:34)
[2023-10-14] MEDS: midazolam hcl 100 MG/100 ML BAG IV (01:58)
[2023-10-14] MEDS: propofol 1,000 MG/100 ML INJ 17.15 MG IV ×2 (03:29→09:14)
[2023-10-14 04:17] LABS: Basophils % 0.3 %; Eosinophils # 0.1 10^3/uL (0.0-0.8); Eosinophils % 0.9 %; Hematocrit 43.1 % (37-53); Lymphocytes # 2.3 10^3/uL (0.8-4.8); Lymphocytes % 21.4 %; Mean Corpuscular Hemoglobin 31.4 pg (27-33); Mean Corpuscular Volume 98.2 fl (82-101); Mean Platelet Volume 9.7 fL (7.4-10.4); Monocytes # 0.8 10^3/uL (0.2-0.9); Neutrophils # 7.26 10^3/uL (1.8-7.7); Neutrophils % 69.1 %; Nucleated Red Blood Cells % 0 %; Platelet Count 190 10^3/cmm (157-399); Red Blood Count 4.39 10^6/uL (3.85-5.65); Red Cell Distribution Width 13.2 % (12.1-15.1)
[2023-10-14 04:38] LABS: ABG PCO2 46.3 mmHg (35-45); ABG PH Result 7.35 (7.35-7.45); Arterial Blood Gas Hematocrit 39.9 % (42-52); Base Excess ABG -0.5 mmol/L (-2.0-2.0); Blood Gas Allen Test Pos; Blood Gas Sample Site Brachial, left; Blood Gas Sample Type Arterial; HCO3 ABG 25.5 mmol/L (22-26); Oxygen Device VENT; PO2 ABG 79.4 mmHg (80.0-100.0); PO2 FiO2 Ratio Arterial Blood 0
[2023-10-14] MEDS: fentaNYL 1,000 MCG/100 ML BAG 7.5 MCG IV (04:43)
[2023-10-14 04:45] LABS: Valproic Acid Level 51.5 ug/mL (50-100)
[2023-10-14 04:47] LABS: Alanine Aminotransferase 9 U/L (0-41); Albumin Level 3.5 g/dL (3.5-5.2); Alkaline Phosphatase 77 U/L (40-130); Blood Urea Nitrogen 27 mg/dL (8-23); Calcium 8.2 mg/dL (8.5-10.5); Carbon Dioxide 22 mmol/L (22-29); Chloride 107 mmol/L (98-107); Globulin 1.8 g/dL (1.3-4.6); Glomerular Filtration Rate 61.6 mL/min (90-130); Glucose 88 mg/dL (65-115); Osmolality Calculated 295 mOsm/kg (285-295); Sodium 140 mmol/L (136-145); Total Bilirubin 0.4 mg/dL (0.15-1.2); Total Protein 5.3 g/dL (6.6-8.7)
[2023-10-14 04:50] LABS: Anion Gap 15.8 (5-19); Aspartate Amino Transferase 20 U/L (0-40); Potassium 4.8 mmol/L (3.5-5.1)
--- NOTE | 2023-10-14 09:21 | PC.SOCIAL ---
IMM Update pg 2 of IMM not updated w/ patient as he remains on the vent and is not anticipated to DC in the next 24-48 hours. Copy left @ bedside and copy dated, initialed and placed in chart.
--- NOTE | 2023-10-14 13:23 | PC.NURSE ---
Addendum entered by Keesha Fortune RN 10/14/23 14:53: Witnessed waste of versed, Fentanyl and Diprovan. Original Note: extubated restraints off and fent 53cc /versed 78cc/ diprivan 74cc wasted with witness Latasha Fortune rn
--- NOTE | 2023-10-14 14:10 | P.PN_ITS ---
Subjective 2 Subjective: Patient was able to wean down sedation and successfully extubated this afternoon. Postextubation he is able to talk. No acute distress. Medications: Reviewed: Yes Vitals/I&O/Wt Last Vital Signs Temp 98 F 10/14/23 09:00 Pulse 116 H 10/14/23 13:15 Resp 15 10/14/23 11:50 BP 156/90 10/14/23 13:15 Pulse Ox 94 10/14/23 13:15 O2 Del Method Mechanical Ventilation 10/14/23 06:00 O2 Flow Rate 2 10/12/23 12:08 FiO2 30 10/14/23 11:50 10/13/23 10/14/23 10/14/23 22:59 06:59 14:59 Intake Total 1239.354 / 2492.629 256.847 / 2749.476 230.963 / 230.963 Output Total 50 / 50 350 / 400 Balance 1189.354 / 2442.629 -93.153 / 2349.476 230.963 / 230.963 Weight last 48 hrs Weight 77.111 kg Weight 77.111 kg Weight 73.028 kg Weight 73.028 kg Weight 72.348 kg Physical Exam 2 Narrative: General: Awake alert postextubation. HEENT: PERRLA, pupils bilaterally equal and reactive, pallors not present Chest: Normal vesicular breath sounds, no added sounds, equal good air entry bilaterally CVS: S1-S2 regular, no murmurs, no tachycardia, no gallops, no rubs Abdomen: Soft, nontender, no organomegaly, bowel sounds present Neuro: Moves all extremities in bed. Able to sit up independently. Talking to at bedside. Urinary Catheter Management: Thorpe: Cath Placed During This Visit: yes Reason for Continuing Indwelling Catheter: Accurate Measurement of Urinary Output in Critically Ill Patients Urinary Catheter Date of Insertion: 10/12/23 Urinary Catheter Time of Insertion: 18:27 Data 10/14/23 04:05 10/14/23 04:05 Micro: Microbiology 10/12/23 17:55 Gram Stain - Final Sputum - Endotracheal Tube Aspirate Sputum Culture - Preliminary 10/12/23 12:26 Blood Culture - Preliminary Blood NEGATIVE TO DATE 10/12/23 12:23 Blood Culture - Preliminary Blood NEGATIVE TO DATE A&P Assessment and plan (1) Status epilepticus: (2) Behavior concern: Plan Patient is presenting emergency room via EMS on October 12, 2023 due to status epilepticus. Per history he has a history of seizures with breakthrough on multiple medications. Showed extreme agitation post a seizure which may be related to receiving ketamine multiple doses of benzodiazepines versus postictal state. neuro consult appreciated Valproic acid level low at 40.3 this morning, increased dose from 250 IV every 8 hours to 250 IV every 6 hours. Recheck level in the a.m. Currently intubated for airway protection. Continued sedation and ventilation for now. Attempt to wean off propofol today while maintaining Versed infusion. Plan for sedation vacation and weaning trial tomorrow. Check ABG with a.m. labs. DVT prophylaxis Lovenox Full code Further orders dependent on clinical progress Plan for today: 10/14/2023. Extubated successfully today. Currently on 2 L/min supplemental O2. Maintaining airway. No seizures noted. Continue close neuromonitoring for any recurrence of seizures. Valproate level today is at 50. Continue dose of valproic acid to 50 IV every 6 hours today. Once patient is able to consistently demonstrate safe swallowing, will transition to Depakote 500 mg ER twice daily with recommended follow-up early next week with neurology. Resume home medications including aspirin amlodipine atorvastatin, Plavix and metoprolol. Insulin sliding scale. Start clear liquid diet. Attestations 2 Medical Necessity Statement*: Extubated today. Needs continued close monitoring. Any recurrence of seizures need to be monitored. Continue IV valproate. Coding Level of Care Code Acute Code for Chg Fwd High MDM includes number and complexity of problems actively addressed during encounter, amount and/or complexity of data reviewed/ordered and described risk of complication, morbidity or mortality of management as documented Diagnoses Status epilepticus G40.901 Behavior concern R46.89
[2023-10-14 17:11] LABS: Glucose Point of Care 81 mg/dL (70-110)
--- NOTE | 2023-10-14 19:47 | PC.NURSE ---
Patient was becoming agitated and confused at the start of this nurse's shift. Patient unable to understand that they had a rodriguez in even after education was provided. Patient was trying to get out of bed. Patient's was at bedside helping and trying to emiliano him down but patient was still agitated.
[2023-10-14] MEDS: OLANZapine 10 mg VIAL IM (19:58)
[2023-10-14] MEDS: enoxaparin 40 mg/0.4 mL Syringe SUBCUT (19:58)
[2023-10-14] MEDS: atorvastatin 40 mg Tablet PO (20:00)
[2023-10-14 20:15] LABS: Glucose Point of Care 115 mg/dL (70-110)
[2023-10-15] VITALS (59 sets, daily range): BP systolic 143–201; BP diastolic 81–132; PULSE 91–139; RESP 14–24; TEMP 37.5; O2SAT 90–99
[2023-10-15] MEDS: metoprolol succinate ER (24 HR) 25 mg Tablet PO ×2 (01:12→08:55)
[2023-10-15] MEDS: valproic acid inj 250 MG in sodium chloride 0.9% 50 ML 55 MG IV ×2 (02:29→08:56)
[2023-10-15] MEDS: hyDRALAzine 20 mg/mL INJ 1 mL 10 MG IVP (04:52)
[2023-10-15 05:11] LABS: Basophils % 0.3 %; Eosinophils # 0.1 10^3/uL (0.0-0.8); Eosinophils % 0.4 %; Hematocrit 41.5 % (37-53); Lymphocytes # 1.5 10^3/uL (0.8-4.8); Lymphocytes % 10.4 %; Mean Corpuscular HGB Conc 32.8 g/dL (30-55); Mean Corpuscular Hemoglobin 30.9 pg (27-33); Mean Corpuscular Volume 94.3 fl (82-101); Mean Platelet Volume 9.8 fL (7.4-10.4); Monocytes # 0.9 10^3/uL (0.2-0.9); Monocytes % 6.7 %; Neutrophils # 11.54 10^3/uL (1.8-7.7); Neutrophils % 81.9 %; Nucleated Red Blood Cells % 0 %; Platelet Count 211 10^3/cmm (157-399); Red Cell Distribution Width 12.8 % (12.1-15.1); White Blood Count 14.08 10^3/uL (3.29-11.43)
[2023-10-15 05:38] LABS: Alanine Aminotransferase 10 U/L (0-41); Albumin Level 3.8 g/dL (3.5-5.2); Alkaline Phosphatase 91 U/L (40-130); Anion Gap 15.6 (5-19); Aspartate Amino Transferase 22 U/L (0-40); Blood Urea Nitrogen 18 mg/dL (8-23); Calcium 8.5 mg/dL (8.5-10.5); Carbon Dioxide 24 mmol/L (22-29); Chloride 106 mmol/L (98-107); Globulin 2.6 g/dL (1.3-4.6); Glomerular Filtration Rate 85.8 mL/min (90-130); Glucose 102 mg/dL (65-115); Osmolality Calculated 296 mOsm/kg (285-295); Potassium 3.6 mmol/L (3.5-5.1); Sodium 142 mmol/L (136-145); Total Bilirubin 1.1 mg/dL (0.15-1.2); Total Protein 6.4 g/dL (6.6-8.7)
[2023-10-15 06:32] LABS: Estmated Average Glucose 103; Hemoglobin A1C 5.2 % (4.0-6.0)
[2023-10-15 08:53] LABS: Glucose Point of Care 111 mg/dL (70-110)
[2023-10-15] MEDS: clopidogrel 75 mg Tablet PO (08:55)
[2023-10-15] MEDS: aspirin 81 mg EC Tablet PO (08:55)
[2023-10-15] MEDS: amlodipine 10 mg Tablet PO (08:56)
[2023-10-15 12:28] LABS: Glucose Point of Care 106 mg/dL (70-110)
--- NOTE | 2023-10-15 13:03 | P.DS_ITS ---
Discharge Providers Date of Admission: 10/12/23 16:09 Date of Discharge: October 15, 2023 Attending Provider at Admission: Nell Lawrence MD Attending Provider at Discharge: Nell Lawrence MD Primary Care Provider: Bruna Mitchell MD Diagnoses at Discharge Discharge Diagnosis (1) Status epilepticus: Status: Acute (2) Behavior concern: Status: Acute Reason for Visit Reason for Visit: SEIZURES Hospital Course Hospital Course González Naranjo is a 62 year old male with a history of childhood epilepsy. Per patient and his he has been on multiple medications in the past however none has consistently been able to control his seizures. He has been off of most medications recently and only takes a marijuana gummy as needed when he thinks he may be having a seizure onset. Per this approach appears to have worked over the past year. He was brought into the emergency room on October 12, 2023 after patient experienced a generalized seizure. Patient received Versed, Phenergan, ketamine on the way to the hospital. Upon arrival here he was severely agitated. His GCS was low at 3. He received additional Versed Ativan and 1 g of Keppra. Because of persisting agitation and low GCS and concern for airway protection he was eventually intubated. He remained intubated on 10/12/2023 and 10/13/2023. He was successfully extubated on the morning of 10/14/2023. He was initiated per neurorecommendations on IV valproic acid. He received doses of 250 mg IV every 6 hours which brought his level of valproate at 50 which is within the acceptable range. This is being transitioned to Depakote ER 500 mg twice daily at the time of discharge per neurology recommendations. Today patient is alert awake oriented. Per he has some short-term memory gaps but overall she believes him to be at baseline mentation. He is able to correctly answer all orientation questions. He is ambulating in the room independently. He feels quite well and wants to go home. Given his overall improvement in condition, no further seizures noted in the hospital course, he is being discharged today with recommendations to continue Depakote at home. Follow-up with neurology within 1 week. He will likely get an EEG as outpatient. Ct head was negative for acute abnormalities. Noted to have high blood pressure ranging between 1 60-1 70 systolic and tachycardia between 100-1 10 which is sinus. He denies any chest pain. Patient is quite hesitant to start any new antihypertensives. Review of medication list has a lot of medications including aspirin Plavix atorvastatin HCTZ and lisinopril metoprolol listed, glipizide however patient and tell us that he is not on any of these medications and has never been prescribed the same. I am uncertain how these medications got on his home medication list in the computer. Per patient and they follow with PCP Dr. Bruna Mitchell quite regularly and he was last seen 3 months ago at which time reportedly he was not diagnosed with any chronic illnesses except for the known seizure disorder. His HbA1c is at 5.2, therefore I do not think he has diabetes and I am inclined to believe when the tells me that the home list of medications are not correct. They are quite hesitant to start antihypertensive regimen today. I have instructed patient and his to maintain a blood pressure diary over the next 1 week. I have given a prescription of amlodipine 5 mg as needed for any SBP's greater than 180. Please follow-up with your primary care physician within 7 to 10 days with a blood pressure chart. Physical Exam Narrative: General: No acute distress, AO x3 HEENT: PERRLA, pupils bilaterally equal and reactive, pallors not present Chest: Normal vesicular breath sounds, no added sounds, equal good air entry bilaterally CVS: S1-S2 regular, no murmurs, no tachycardia, no gallops, no rubs Abdomen: Soft, nontender, no organomegaly, bowel sounds present Neuro: No focal deficits, no facial deformity, AO x3, power 5/5 in all limbs Urinary Catheter Management: Thorpe: Cath Placed During This Visit: yes, but has since been removed by the nurse Reason for Continuing Indwelling Catheter: Decision to DC Catheter Urinary Catheter Date of Insertion: 10/12/23 Urinary Catheter Time of Insertion: 18:27 Date Urinary Catheter Removed: 10/15/23 Time Urinary Catheter Discontinued: 12:51 Discharge Data Studies Completed and Pending Completed Studies During Hospitalization Category Date Time Status CT head wo con* [id number] Stat Cat Scan 10/12/23 12:12 Completed CXRP [XR chest 1V portable [id number]] AM LABS Exams 10/13/23 13:03 Completed XR chest 1V portable [id number] Routine Exams 10/12/23 18:01 Completed XR chest 1V portable [id number] Stat Exams 10/12/23 12:12 Completed Pending at discharge Category Date Time Status Blood Culture Stat Lab 10/12/23 12:26 Results Radiology Impressions Head CT 10/12/23 12:12 IMPRESSION: No acute intracranial abnormality. Laboratory Results WBC 14.08 10^3/uL (3.29-11.43) H 10/15/23 03:35 RBC 4.40 10^6/uL (3.85-5.65) 10/15/23 03:35 Hgb 13.60 g/dL (11.27-16.99) 10/15/23 03:35 Hct 41.5 % (37-53) 10/15/23 03:35 MCV 94.3 fl (82-101) 10/15/23 03:35 MCH 30.9 pg (27-33) 10/15/23 03:35 MCHC 32.8 g/dL (30-55) 10/15/23 03:35 RDW 12.8 % (12.1-15.1) 10/15/23 03:35 Plt Count 211 10^3/cmm (157-399) 10/15/23 03:35 MPV 9.8 fL (7.4-10.4) 10/15/23 03:35 Neut % (Auto) 81.9 % 10/15/23 03:35 Lymph % (Auto) 10.4 % 10/15/23 03:35 [place] % (Auto) 6.7 % 10/15/23 03:35 Eos % (Auto) 0.4 % 10/15/23 03:35 Baso % (Auto) 0.3 % 10/15/23 03:35 Neut # (Auto) 11.54 10^3/uL (1.8-7.7) H 10/15/23 03:35 Lymph # (Auto) 1.5 10^3/uL (0.8-4.8) 10/15/23 03:35 [place] # (Auto) 0.9 10^3/uL (0.2-0.9) 10/15/23 03:35 Eos # (Auto) 0.1 10^3/uL (0.0-0.8) 10/15/23 03:35 Baso # (Auto) 0.0 10^3/uL (0.0-0.1) 10/15/23 03:35 Nucleated RBC % (auto) 0 % 10/15/23 03:35 Nucleated RBCs # 0.0 /100WBC 10/15/23 03:35 Specimen Type Arterial 10/14/23 04:30 Sample Site Brachial, left 10/14/23 04:30 ABG pH 7.35 (7.35-7.45) 10/14/23 04:30 ABG pCO2 46.3 mmHg (35-45) H 10/14/23 04:30 ABG pO2 79.4 mmHg (80.0-100.0) L 10/14/23 04:30 ABG PO2/FiO2 Ratio 0 10/14/23 04:30 ABG HCO3 25.5 mmol/L (22-26) 10/14/23 04:30 ABG O2 Saturation 99.3 10/13/23 03:14 ABG Base Excess -0.5 mmol/L (-2.0-2.0) 10/14/23 04:30 Jony Test Pos 10/14/23 04:30 A-a O2 Gradient 19.6 mmHg (5-10) H 10/13/23 03:14 Hematocrit 39.9 % (42-52) L 10/14/23 04:30 Hgb O2 Saturation 96.9 % (95-100) 10/13/23 03:14 Carboxyhemoglobin 1.4 %THgb (0.4-20.1) 10/13/23 03:14 Methemoglobin 1.1 % (0.4-1.5) 10/13/23 03:14 Total Hemoglobin 14.1 g/dL (14-18) 10/13/23 03:14 Sodium 142.0 mmol/L (131-143) 10/13/23 03:14 Potassium 3.9 mmol/L (3.5-5.0) 10/13/23 03:14 Glucose 78.0 mg/dL (70-115) 10/13/23 03:14 Ionized Calcium 1.2 mmol/L (1.1-1.4) 10/13/23 03:14 O2 Delivery Device Vent 10/14/23 04:30 O2 Liters/Min 3.0 % 10/12/23 12:05 FiO2 30.0 % 10/14/23 04:30 PEEP 8.0 cmH20 10/14/23 04:30 Manager Forensic ID [email or web address] 10/14/23 04:30 Sodium 142 mmol/L (136-145) 10/15/23 03:35 Potassium 3.6 mmol/L (3.5-5.1) 10/15/23 03:35 Chloride 106 mmol/L (98-107) 10/15/23 03:35 Carbon Dioxide 24 mmol/L (22-29) 10/15/23 03:35 Anion Gap 15.6 (5-19) 10/15/23 03:35 BUN 18 mg/dL (8-23) 10/15/23 03:35 Creatinine 0.9 mg/dL (0.7-1.2) 10/15/23 03:35 GFR Calculation 85.8 mL/min (90-130) L 10/15/23 03:35 Glucose 102 mg/dL (65-115) 10/15/23 03:35 POC Glucose 106 mg/dL (70-110) 10/15/23 12:13 Estimat Average Glucose 103 10/15/23 03:35 Hemoglobin A1c 5.2 % (4.0-6.0) 10/15/23 03:35 Calculated Osmolality 296 mOsm/kg (285-295) H 10/15/23 03:35 Lactic Acid 1.3 mmol/L (0.5-2.2) 10/12/23 12:26 Calcium 8.5 mg/dL (8.5-10.5) 10/15/23 03:35 Magnesium 2.2 mg/dL (1.7-2.3) 10/12/23 12:26 Total Bilirubin 1.1 mg/dL (0.15-1.2) 10/15/23 03:35 AST 22 U/L (0-40) 10/15/23 03:35 ALT 10 U/L (0-41) 10/15/23 03:35 Alkaline Phosphatase 91 U/L (40-130) 10/15/23 03:35 Troponin T Baseline 11 ng/L (0-15) 10/12/23 12:26 Troponin T 120 Minute 10.61 ng/L (0-15) 10/12/23 14:36 Delta Troponin T -0.39 ABS# (0-10) L 10/12/23 14:36 Troponin T Hi Sens 6Hr 11.30 ng/L (0-15) 10/12/23 18:25 Troponin T Hi Sens 6Hr Delta 0.30 ng/L (0-12) 10/12/23 18:25 Total Protein 6.4 g/dL (6.6-8.7) L D 10/15/23 03:35 Albumin 3.8 g/dL (3.5-5.2) 10/15/23 03:35 Globulin 2.6 g/dL (1.3-4.6) 10/15/23 03:35 Urine Color Dark yellow (Yellow) 10/12/23 14:30 Urine Appearance Clear (CLEAR) 10/12/23 14:30 Urine pH 8 (5-7) H 10/12/23 14:30 Ur Specific [place] 1.015 (1.005-1.030) 10/12/23 14:30 Urine Protein Neg (Negative) 10/12/23 14:30 Urine Glucose (UA) Norm (Normal) 10/12/23 14:30 Urine Ketones 1+ (Negative) H 10/12/23 14:30 Urine Blood Neg (Negative) 10/12/23 14:30 Urine Nitrate Negative (Negative) 10/12/23 14:30 Urine Bilirubin Neg (Negative) 10/12/23 14:30 Prot Sulfosalicylic Acd Negative (Negative) 10/12/23 14:30 Urine Urobilinogen 1 mg/dL (Negative) H 10/12/23 14:30 Ur Leukocyte Esterase Negative (Negative) 10/12/23 14:30 Salicylates < 0.3 mg/dL (3-10) L 10/12/23 12:26 Urine Opiates Screen Negative ng/mL (Negative) 10/12/23 14:30 Acetaminophen < 5.0 ug/mL (10-30) L 10/12/23 12:26 Ur Barbiturates Screen Negative ng/mL (Negative) 10/12/23 14:30 Valproic Acid 51.5 ug/mL (50-100) 10/14/23 04:05 Ur Phencyclidine Scrn Negative ng/mL (Negative) 10/12/23 14:30 Ur Amphetamines Screen Negative ng/mL (Negative) 10/12/23 14:30 U Benzodiazepines Scrn Positive ng/mL (Negative) H 10/12/23 14:30 Urine Cocaine Screen Negative ng/mL (Negative) 10/12/23 14:30 U Marijuana (THC) Screen Positive ng/mL (Negative) H 10/12/23 14:30 Ethyl Alcohol < 10 mg/dL (0-10) 10/12/23 12:26 Vitals Last Vital Signs Temp 99.5 F 10/15/23 08:30 Pulse 99 10/15/23 10:00 Resp 19 H 10/15/23 10:00 BP 167/97 10/15/23 10:00 Pulse Ox 97 10/15/23 10:00 O2 Del Method Room Air 10/15/23 08:30 O2 Flow Rate 2 10/12/23 12:08 FiO2 30 10/14/23 11:50 Discharge Plan Discharge Patient Disposition: Home Condition: Stable Prescriptions: New divalproex [Depakote ER] 500 mg tablet extended release 24 hr 500 mg PO BID 30 Days Qty: 60 1RF amlodipine 5 mg tablet 5 mg PO DAILY PRN (Reason: hypertension) Qty: 30 0RF Rx Instructions: take if blood pressure > 180 top number Discontinued lisinopril 10 mg Tablet 10 mg PO DAILY atorvastatin 80 mg Tablet 80 mg PO DAILY hydrochlorothiazide tablet 25 mg PO DAILY Rx Instructions: 1/2 tab metoprolol succinate 25 mg PO DAILY pregabalin 150 mg Capsule 150 mg PO DAILY aspirin 81 mg PO DAILY Plavix 75 mg Tablet 75 mg PO DAILY tizanidine 4 mg Capsule 4 mg PO BID PRN (Reason: Pain) glipizide 5 mg Tablet 5 mg PO BID amlodipine 10 mg PO DAILY tramadol 50 mg PO Q4H PRN (Reason: Pain, Mild) iron 325 mg (65 mg iron) Tablet 325 mg PO DAILY Discharge Orders: Discharge Order (Routine); Ordered 10/15/23 Ordered By: Nell Lawrence Referrals: Bruna Mitchell MD [Primary Care Provider] - 7-10 days Chapo Stapleton MD [Physician] - 4-7 days (Close outpatient follow up in the week of 10/[address] Stapleton ) Discharge Diet: Usual diet Discharge Activity: Resume usual activity Patient Instructions: Opioid Safety Discharge Attestations Time Spent in Discharge Care*: greater than 30 min Quality Metrics Clinical Quality Measures [ No reported AMI, CVA or VTE this stay] Coding Level of Care Code Acute Code for Chg Fwd Diagnoses Status epilepticus G40.901 Behavior concern R46.89
--- NOTE | 2023-10-15 14:38 | PC.NURSE ---
Patient discharged. ALert and Oriented. states he is at baseline. Thorpe catheter removed and patient was able to void normally. Both IVs removed. Education provided on upcoming appointments, new medications, and activity. We are unable to make appointments on weekend, patient and will call to make appointments on tuesday.
== END 2023-10-15 14:41 | disposition home or self-care (01) | DRG 101 ==
LOC: ER 12:33 → ICU 16:20
PROVIDERS: Admitting Provider Student in an Organized Health Care Education/Training Program; Emergency Provider Family Medicine; PCP Family Medicine; Visit Provider Student in an Organized Health Care Education/Training Program
DX: G40.901 Epilepsy, unspecified, not intractable, with status epilepticus (principal); M48.062 Spinal stenosis, lumbar region with neurogenic claudication; F17.210 Nicotine dependence, cigarettes, uncomplicated; R00.0 Tachycardia, unspecified; I10 Essential (primary) hypertension
CPT/HCPCS: 31500; 36415; 36416; 36600; 51702; 70450; 71045; 80051; 80053; 80164; 80306; 80307; 81003; 82330; 82803; 82805; 82962; 83036; 83605; 83735; 84484; 85025; 87040; 87070; 87205; 93005; 94002; 94003; 94799; 96365; 96367; 96372; 96375; 96376; 99291; J0330; J0360; J1650; J1953; J2060; J2250; J2704; J3010; J3490; J7030

== ENCOUNTER → 2023-11-23 14:41 | Outpatient (BNVA) | payer OTHER, SELFPAY | PROVIDERS: PCP Family Medicine; Visit Provider Psychiatry & Neurology Neurology | DX: G40.911 Epilepsy, unspecified, intractable, with status epilepticus (principal) | CPT/HCPCS: 99212 ==

== ENCOUNTER 2023-12-02 15:05 | Outpatient (CLI) | payer OTHER, SELFPAY ==
--- NOTE | 2023-12-02 15:30 | USCV_ITS ---
González Naranjo Age: 63 Gender: M : 1960 Exam Date: 12/02/2023 15:21 Ordering Phys: Chapo Stapleton MD Technologist: CT Exam Location: [facility] – [place]_ Indication: dizziness Risk Factors: Previous Vascular Surgery: Right Brachial BP: / Left Brachial BP: / Right Left Velocity (cm/s) Spectral Plaque Velocity (cm/s) Spectral Plaque Syst/Diast Broadening Syst/Diast Broadening 83.80/ 18.70 Prox CCA 71.90 / 15.40 79.40/ 17.60 Mid CCA 79.40 / 20.90 68.10/ 21.50 Distal CCA 57.50 / 16.10 32.80/ 10.10 Prox ICA 28.20 / 11.50 40.40/ 17.00 Mid ICA 40.70 / 17.40 40.40/ 16.40 Distal ICA 43.90 / 15.90 77.00 ECA 82.00 0.48 ICA/CCA 0.55 Antegrade Vertebral Antegrade 39.10/ 13.20 cm/s 48.10/ 19.00 cm/s Tri Subclavian Tri 77.60 145.6 0 FINDINGS Comparison: none available. No significant elevation of systolic or diastolic velocities. Waveforms are normal. No significant amount of calcified plaque or intimal thickening identified. Minimal carotid atherosclerotic plaque. CONCLUSIONS Bilateral ICA stenosis less than 50%. Mild carotid atherosclerosis. Dr. Katerina Mo DO (Electronically Signed) Final Date: 03 December 2023 17:33 S
== END 2023-12-02 15:06 | disposition home or self-care (01) ==
PROVIDERS: PCP Family Medicine; Visit Provider Psychiatry & Neurology Neurology
DX: G40.901 Epilepsy, unspecified, not intractable, with status epilepticus (principal); I65.23 Occlusion and stenosis of bilateral carotid arteries; R42 Dizziness and giddiness
CPT/HCPCS: 93880

== ENCOUNTER 2023-12-02 15:11 | Outpatient (CLI) | payer OTHER, SELFPAY | END 2023-12-02 15:12 | disposition home or self-care (01) | LOC: LAB 15:12 | PROVIDERS: PCP Family Medicine; Visit Provider Psychiatry & Neurology Neurology | DX: G40.911 Epilepsy, unspecified, intractable, with status epilepticus (principal); M48.062 Spinal stenosis, lumbar region with neurogenic claudication | CPT/HCPCS: 36415; 80164 ==

== ENCOUNTER → 2024-10-15 14:44 | Outpatient (BNVA) | payer OTHER, SELFPAY | PROVIDERS: PCP Family Medicine; Referring Provider Family Medicine; Visit Provider Nurse Practitioner Family | DX: D48.5 Neoplasm of uncertain behavior of skin (principal); L57.8 Other skin changes due to chronic exposure to nonionizing radiation; Q82.5 Congenital non-neoplastic nevus; D22.5 Melanocytic nevi of trunk; L57.0 Actinic keratosis | CPT/HCPCS: 17000; 99203 ==

== ENCOUNTER → 2024-12-05 15:39 | Outpatient (BNVA) | payer OTHER, SELFPAY | PROVIDERS: PCP Family Medicine; Visit Provider Nurse Practitioner Family | DX: L98.8 Other specified disorders of the skin and subcutaneous tissue (principal); L81.4 Other melanin hyperpigmentation; D48.5 Neoplasm of uncertain behavior of skin; L57.0 Actinic keratosis | CPT/HCPCS: 11102; 17000; 99213 ==